=== PATIENT | male | born 1980 | race Caucasian/White ===

== ENCOUNTER 2018-03-24 13:32 | Outpatient (CLI) | payer OTHER | END 2018-03-24 13:33 | disposition home or self-care (01) | LOC: SC 13:32 | PROVIDERS: ATTEND Internal Medicine Pulmonary Disease | DX: G47.33 Obstructive sleep apnea (adult) (pediatric) (principal); E66.9 Obesity, unspecified; Z68.36 Body mass index [BMI] 36.0-36.9, adult | CPT/HCPCS: 99203; 99212 ==

== ENCOUNTER 2019-06-01 09:43 | Outpatient (CLI) | payer OTHER ==
--- NOTE | 2019-06-01 10:10 | SLEEP CARE CONSULTATION ---
Information from patient questionnaire entered by Lupe Orellana. I have reviewed and concur with the information entered by Lupe Orellana. This document represents the service I personally performed and the decisions made by me, Daryl Latham MD, [facility]. History of Present Illness Previous diagnosis: Mild, Obstructive Sleep Apnea-Hypopnea Syndrome AHI: 13.0 Reason for follow up: annual (Last seen 2018) Equipment type: CPAP Equipment obtained from: [employer] Mask style: Nasal pillows Mask brand: Resmed HPI additional information: HPI: Mr. Baer returned today for annual follow up of nasal CPAP therapy. He was diagnosed to have mild obstructive sleep apnea-hypopnea syndrome. The patient still wears the ResMed AirFit P-10 nasal pillows. He reports using the device nightly and all through the night. The compliance report shows usage in 180 nights out of the past 180 nights, averaging 7.4 hours a night. He complained of no particular problem with the device such as soreness on the face, dry nose, epistaxis, nasal congestion or headache. He thinks that the pressure at 7 8 cmH2O is comfortable. On the CPAP therapy he notices improvement in his sleep quality, and that he wakes up feeling fresher in the morning and more awake/alert during the day. His notices rare snore through the CPAP. The average residual AHI is 0.3 : and air leak, 0 L/min. The 90th percentile pressure is 7.8 cmH2O. CPAP Compliance Data - Data Reviewed with Patient Average duration of nightly device use: 7.45 Compliance rate %: 99 (180 days) Current pressure setting (cmH2O): 7-8 Humidity settin Average residual AHI: 0.3 Subjective Initial Pierce Sleepiness Scale score: 6 Current Pierce Sleepiness Scale score: 10 Allergies and Home Medications Drug allergies reviewed: Yes Home medication list reviewed: Yes Review of Systems Review of systems same as previous: Yes Physical Exam Weight: 232 lb Impression and Plan IMPRESSION: 1. Obstructive Sleep Apnea-Hypopnea Syndrome, mild, with the patient continuing to do well on nasal CPAP therapy. He has excellent compliance and significant clinical improvement. The current pressure appears effective and comfortable. Overall, he is very satisfied with treatment and plans to continue with it long- term. Because he still snores occasionally, I will raise the pressure range to 7 10 cmH2O. PLAN: 1. Set autoCPAP set at 7 - 10 cmH2O. Prescription faxed to [email or web address]. 2. Try to lose weight 3. Try ResMed P30i mask 4. Return in one year for follow up or earlier if there is any problem with the treatment. I spent 100% of this 20 minute visit face to face with the patient with greater than 50% of this was spent time counseling the patient and coordination of care.
== END 2019-06-01 09:44 | disposition home or self-care (01) ==
LOC: SC 09:43
PROVIDERS: ATTEND Internal Medicine Pulmonary Disease
DX: G47.33 Obstructive sleep apnea (adult) (pediatric) (principal)
CPT/HCPCS: 99212; 99213